=== PATIENT | female | born 1985 | race Caucasian/White ===

== ENCOUNTER → 2019-03-21 | Outpatient (CLI) | payer OTHER ==
--- NOTE | 2019-03-21 14:32 | RADIOLOGY REPORT (SQ) ---
EXAM DESCRIPTION: U/S NON-OB PELVIS TV W/O DOP COMPLETED DATE/TIME: 03/21/2019 2:11 pm REASON FOR STUDY: R10.2 PELVIC AND PERINEAL PAIN R10.9 UNSPECIFIED ABDOMINAL PAIN R10.2 PELVIC AND PERINEAL PAIN COMPARISON: None. TECHNIQUE: Dynamic and static grayscale images acquired of the pelvis via transvaginal approach and recorded on PACS. Additional selected color Doppler and spectral images recorded. LIMITATIONS: None. FINDINGS: UTERUS: Contour normal. No mass. ENDOMETRIAL STRIPE: No focal or generalized thickening. No masses. CERVIX: 2.2 cm. No nabothian cysts. RIGHT OVARY AND DOPPLER: Normal size. No solid masses. There is a 5.6 x 5.2 x 4.2 cm septated cyst w ith internal debris. Normal arterial vascular flow without evidence for torsion. LEFT OVARY AND DOPPLER: Ovary not seen. FREE FLUID: None noted. OTHER: No other significant finding. MEASUREMENTS: UTERUS: 9.4 x 6.9 x 6.3 cm. ENDOMETRIAL STRIPE: 7.5 mm. RIGHT OVARY: 6 x 5.2 x 5.4 cm. LEFT OVARY: Ovary not seen. IMPRESSION: 5.6 cm septated right ovarian cyst with internal debris. The septation is thin. This m ay represent a hemorrhagic cyst. Recommend 6 to 12 week follow-up ultrasound. TECHNICAL DOCUMENTATION: JOB ID: [id number]- All Rights Reserved Rev-11/20 Reading location - IP/workstation name: [email or web address]
--- NOTE | 2019-03-21 14:33 | RADIOLOGY REPORT (SQ) ---
EXAM DESCRIPTION: U/S RETROPERITON (RENAL/AORTA) COMPLETED DATE/TIME: 03/21/2019 2:12 pm REASON FOR STUDY: R10.9 UNSPECIFIED ABDOMINAL PAIN R10.9 UNSPECIFIED ABDOMINAL PAIN R10.2 PELVIC A ND PERINEAL PAIN COMPARISON: None. TECHNIQUE: Dynamic and static grayscale images acquired of the kidneys and bladder and recorded on P ACS. Additional selected color Doppler and spectral images recorded. LIMITATIONS: None. FINDINGS: RIGHT KIDNEY: Normal size, 9.5 cm. Normal echogenicity. No solid or suspicious masses. Th e renal pelvis is prominent, but there is no true hydronephrosis. No calcifications. LEFT KIDNEY: Normal size, 11.8 cm. Normal echogenicity. No solid or suspicious masses. No hydronephr osis. No calcifications. BLADDER: No masses. OTHER FINDINGS: No other significant finding. IMPRESSION: NORMAL RENAL AND BLADDER ULTRASOUND. TECHNICAL DOCUMENTATION: JOB ID: [id number] [employer]- All Rights Reserved Reading location - IP/workstation name: [email or web address]
== END ==
LOC: RAD 13:11
PROVIDERS: ATTEND Nurse Practitioner Family
DX: R10.9 Unspecified abdominal pain (principal); R10.2 Pelvic and perineal pain
CPT/HCPCS: 76770; 76830

== ENCOUNTER 2019-03-22 19:42 | Emergency (ER) | payer OTHER ==
[2019-03-22] MEDS ORDERED: METOCLOPRAMIDE HCL 10 MG TABLET PO ONE (20:01)
--- NOTE | 2019-03-22 20:04 | ER Document Report ---
ED Medical Screen (RME) - General Chief Complaint: Abdominal Pain Stated Complaint: RIGHT SIDE ABDOMINAL PAIN Time Seen by Provider: 03/22/19 19:53 Primary Care Provider: ALMAZ MORALES FNP-C [Primary Care Provider] - Follow up as needed Mode of Arrival: Ambulatory Information source: Patient Notes: 33-year-old female presents emergency department with complaints of right-sided flank/side pain neck pain left shoulder pain. Was recently evaluated for possible ruptured ovarian cyst with TV US and renal US. Denies vaginal discharge denies vaginal bleed. Reports pain started off on the right side this weekend she has been treated with Toradol some hydrocodone and some fluids Rocephin Macrobid. She reports the pain is in her left shoulder and its excruciating. Right lower quad slightly tender to palpate. She Reports that pain is better than it was. I have greeted and performed a rapid initial assessment of this patient. A comprehensive ED assessment and evaluation of the patient, analysis of test results and completion of the medical decision making process will be conducted by additional ED providers. Dictation of this chart was performed using voice recognition software; therefore, there may be some unintended grammatical errors. TRAVEL OUTSIDE OF THE [place] IN LAST 30 DAYS: No - Related Data Allergies/Adverse Reactions: No Known Allergies Allergy (Verified 03/22/19 19:45) Physical Exam - Vital signs Vitals: Temp Pulse Resp BP Pulse Ox 98.6 F 82 18 140/90 H 100 03/22/19 19:49 03/22/19 19:49 03/22/19 19:49 03/22/19 19:49 03/22/19 19:49 Course - Vital Signs Vital signs: Temp Pulse Resp BP Pulse Ox 98.6 F 82 18 140/90 H 100 03/22/19 19:49 03/22/19 19:49 03/22/19 19:49 03/22/19 19:49 03/22/19 19:49 Doctor's Discharge - Discharge Referrals: ALMAZ MORALES FNP-C [Primary Care Provider] - Follow up as needed
[2019-03-22 20:28] LABS: ABSOLUTE EOSINOPHILS # (AUTO) 0.1 10^3/uL (0.0-0.6); ABSOLUTE LYMPHOCYTES (AUTO) 1.8 10^3/uL (0.5-4.7); ABSOLUTE MONOCYTES (AUTO) 0.3 10^3/uL (0.1-1.4); ABSOLUTE NEUT (AUTO) 2.8 10^3/uL (1.7-8.2); BASOPHILS % (AUTO) 0.3 % (0-2); EOSINOPHILS % (AUTO) 1.9 % (0-6); HEMATOCRIT 35.4 % (36.0-47.0); HEMOGLOBIN 11.8 g/dL (12.0-15.5); LYMPHOCYTES % (AUTO) 36.5 % (13-45); MEAN CORPUSCULAR HEMOGLOBIN 30.1 pg (27.0-33.4); MEAN CORPUSCULAR HGB CONC 33.4 g/dL (32.0-36.0); MEAN CORPUSCULAR VOLUME 90 fl (80-97); MONOCYTES % (AUTO) 6.2 % (3-13); PLATELET COUNT 198 10^3/uL (150-450); RED BLOOD COUNT 3.92 10^6/uL (3.72-5.28); RED CELL DISTRIBUTION WIDTH 14.5 % (11.5-14.0); SEGMENTED NEUTROPHILS % (AUTO) 55.1 % (42-78); TOTAL CELLS COUNTED % (AUTO) 100 %
[2019-03-22 20:31] LABS: APPEARANCE,URINE CLEAR; BILIRUBIN,URINE NEGATIVE (NEGATIVE); COLOR,URINE COLORLESS; GLUCOSE, URINE NEGATIVE (NEGATIVE); KETONES,URINE NEGATIVE (NEGATIVE); LEUKOCYTE ESTERASE,URINE NEGATIVE (NEGATIVE); NITRITE,URINE NEGATIVE (NEGATIVE); PROTEIN,URINE NEGATIVE (NEGATIVE); URINE SPECIFIC GRAVITY 1.003; UROBILINOGEN,URINE NEGATIVE mg/dL (<2.0)
[2019-03-22 20:53] LABS: ALBUMIN 4.3 g/dL (3.5-5.0); ALKALINE PHOSPHATASE 40 U/L (38-126); ANION GAP 9 (5-19); ASPARTATE AMINO TRANSFERASE 31 U/L (14-36); BILIRUBIN,TOTAL 0.5 mg/dL (0.2-1.3); BLOOD UREA NITROGEN 13 mg/dL (7-20); CARBON DIOXIDE 23 mmol/L (22-30); CHLORIDE 106 mmol/L (98-107); GLUCOSE 85 mg/dL (75-110); TOTAL PROTEIN 6.8 g/dL (6.3-8.2)
--- NOTE | 2019-03-22 21:18 | ER Document Report ---
ED GI/ - General Chief Complaint: Abdominal Pain Stated Complaint: RIGHT SIDE ABDOMINAL PAIN Time Seen by Provider: 03/22/19 21:18 Primary Care Provider: ALMAZ MORALES FNP-C [Primary Care Provider] - Follow up as needed Mode of Arrival: Ambulatory Information source: Patient Notes: HISTORY OF PRESENT ILLNESS: Patient is a 33-year-old female with no significant past medical history who presents with lower pelvic and right lower quadrant pain beginning 2 days ago. Patient reports that she was seen in outside facility and told she "possibly had an early urine infection" and was given antibiotics. This did not improve so she presented to the emergency department yesterday. At that time she was diagnosed with an ovarian cyst but reports she has not gotten any better. Location: Pelvis, right lower quadrant Onset: 2 or 3 days ago Alleviation: Mild improvement with hydrocodone Provocation: Worsening with movement Quality: Aching, sharp Radiation: None Severity: Severe at worst, currently mild Timing: Persistent History of abdominal surgery: Tubal ligation Associated symptoms: Mild nausea but no vomiting, denies fevers or chills, no vaginal bleeding or discharge Last bowel movement: Today and normal Last menstrual period: Approximately 2 weeks ago REVIEW OF SYSTEMS: CONSTITUTIONAL : Denies fever or chills, no sweats. Denies recent illness. EENT: Denies eye, ear, throat, or mouth pain or symptoms. Denies nasal or sinus congestion. CARDIOVASCULAR: Denies chest pain. Denies swelling of the legs. RESPIRATORY: Denies cough, cold, or chest congestion. Denies shortness of breath or difficulty breathing. Denies wheezing. GASTROINTESTINAL: Positive for abdominal pain. Positive for nausea but no diarrhea. Denies constipation. GENITOURINARY: Denies difficulty urinating, painful urination, burning, frequency, or blood in urine. FEMALE GENITOURINARY: Denies vaginal bleeding, abnormal or irregular periods. MUSCULOSKELETAL: Denies neck or back pain or joint pain or swelling. SKIN: Denies rash or skin lesions. HEMATOLOGIC : Denies easy bruising or bleeding. LYMPHATIC: Denies swollen, enlarged glands. NEUROLOGICAL: Denies altered mental status or loss of consciousness. Denies headache. Denies weakness or paralysis or loss of use of either side. Denies problems with gait or speech. Denies sensory or motor loss. PSYCHIATRIC: Denies anxiety or stress or depression. All other systems reviewed and negative. PHYSICAL EXAMINATION: GENERAL: Well-appearing, well-nourished and in no acute distress. HEAD: Atraumatic, normocephalic. No scalp deformity, depression, or crepitance. EYES: Pupils are 3 mm and equal/round/reactive to light, extraocular movements intact, sclera anicteric, conjunctiva are normal. ENT: Nares patent bilaterally, oropharynx. Moist mucous membranes. No tonsil hypertrophy. NECK: Normal range of motion, supple without lymphadenopathy. LUNGS: Breath sounds present, equal, and clear to auscultation bilaterally. No wheezes, rales, or rhonchi. HEART: Regular rate and rhythm without murmurs, rubs, or gallops. 2+ peripheral pulses. Normal capillary refill. ABDOMEN: Soft and nondistended, mild discomfort in the right lower pelvis. Normoactive bowel sounds. No guarding, no rebound. No masses appreciated. BACK: Normal contour, no midline tenderness. Rectal exam deferred. GENITAL/PELVIC: Deferred. EXTREMITIES: Normal range of motion, no pitting or edema. No cyanosis. NEUROLOGICAL: No focal neurological deficits. Moves all extremities spontaneously and on command. PSYCH: Normal mood, normal affect. No suicidal thoughts/ideations. No homicidal thoughts/ideations. No hallucinations. SKIN: Warm, dry, normal turgor, no rashes or lesions noted. ASSESSMENT AND PLAN: This patient is a 33-year-old female who presents with persistent right lower quadrant and pelvic discomfort. Patient is afebrile and appears nontoxic, consideration was given to appendicitis but this was ruled out apparently according to the patient. 1. Will repeat labs. 2. Will give oral Provera. TRAVEL OUTSIDE OF THE [place] IN LAST 30 DAYS: No - HPI Patient complains to provider of: Abdominal pain Onset: Yesterday Timing/Duration: Sudden Quality of pain: Achy, Cramping Severity at maximum: Moderate Severity in ED: Mild Pain Level: 2 Location: RLQ, Pelvis Vaginal bleeding (Compared to normal period): None Menstrual period history: Irregular Sexual history: Active Associated symptoms: Nausea Exacerbated by: Movement Relieved by: Denies Similar symptoms previously: Yes Recently seen / treated by doctor: Yes - Related Data Allergies/Adverse Reactions: No Known Allergies Allergy (Verified 03/22/19 19:45) Past Medical History - General Information source: Patient - Social History Smoking Status: Never Smoker Chew tobacco use (# tins/day): No Frequency of alcohol use: None Drug Abuse: None Lives with: Family Family History: Reviewed & Not Pertinent Patient has suicidal ideation: No Patient has homicidal ideation: No - Past Medical History Cardiac Medical History: Reports: None Pulmonary Medical History: Reports: None EENT Medical History: Reports: None Neurological Medical History: Reports: None Endocrine Medical History: Reports: None Renal/ Medical History: Reports: None Malignancy Medical History: Reports: None GI Medical History: Reports: None Musculoskeletal Medical History: Reports None Skin Medical History: Reports None Psychiatric Medical History: Reports: None Traumatic Medical History: Reports: None Infectious Medical History: Reports: None Past Surgical History: Reports: Hx Tubal Ligation - Immunizations Immunizations up to date: Yes Hx Diphtheria, Pertussis, Tetanus Vaccination: Yes Review of Systems - Review of Systems Constitutional: No symptoms reported EENT: No symptoms reported Cardiovascular: No symptoms reported Respiratory: No symptoms reported Gastrointestinal: See HPI, Abdominal pain, Nausea Genitourinary: No symptoms reported Female Genitourinary: No symptoms reported Musculoskeletal: No symptoms reported Skin: No symptoms reported Hematologic/Lymphatic: No symptoms reported Neurological/Psychological: No symptoms reported -: Yes All other systems reviewed and negative Physical Exam - Vital signs Vitals: Temp Pulse Resp BP Pulse Ox 98.6 F 82 18 140/90 H 100 03/22/19 19:49 03/22/19 19:49 03/22/19 19:49 03/22/19 19:49 03/22/19 19:49 Interpretation: Normal Course - Re-evaluation Re-evalutation: 03/22/19 22:55 Will discharge the patient home with strict return precautions and follow-up with gynecology. All results were explained to and discussed with the patient, and all questions addressed and answered for the patient. The patient voice both understanding and agreeing with the plan. - Vital Signs Vital signs: Temp Pulse Resp BP Pulse Ox 98.6 F 82 18 140/90 H 100 03/22/19 19:49 03/22/19 19:49 03/22/19 19:49 03/22/19 19:49 03/22/19 19:49 - Laboratory Result Diagrams: 03/22/19 20:20 03/22/19 20:20 Laboratory results interpreted by me: 03/22/19 20:20 Hgb 11.8 L Hct 35.4 L RDW 14.5 H - Diagnostic Test Radiology reviewed: Image reviewed, Reports reviewed Discharge - Discharge Clinical Impression: Ovarian cyst Qualifiers: Laterality: right Qualified Code(s): N83.201 - Unspecified ovarian cyst, right side Condition: Good Disposition: HOME, SELF-CARE Instructions: Ovarian Cyst ([facility]) Additional Instructions: You have been evaluated in the Emergency Department for persistent pain from an ovarian cyst. While here, you had blood work and it is now safe to be discharged home. Please follow-up with your gynecology as instructed in one week to be rechecked. Return to the Emergency Department if you experience worsening pain, high fevers, vaginal bleeding, or any other concerning symptoms. Prescriptions: Acetaminophen with Codeine [Tylenol #3 Tablet] 1 each PO Q6HP PRN #30 tablet PRN Reason: For Pain Medroxyprogesterone Acet [Provera 10 Mg Tablet] 10 mg PO DAILY #30 tablet Metoclopramide HCl [Reglan 10 mg Tablet] 1 tab PO TID #30 tablet Referrals: ALMAZ MORALES FNP-C [Primary Care Provider] - Follow up as needed SIDDHARTHA CONRAD MD [ACTIVE STAFF] - Follow up as needed Print Language: Burkinan
[2019-03-22] MEDS ORDERED: MEDROXYPROGESTERONE ACET 10 MG TABLET PO ONE (21:57)
[2019-03-22 23:05] VITALS: BP 104/60
== END 2019-03-22 23:08 | disposition home or self-care (01) ==
LOC: ER 19:42
DX: N83.201 Unspecified ovarian cyst, right side (principal); R10.2 Pelvic and perineal pain; R10.31 Right lower quadrant pain; R11.0 Nausea; Z98.51 Tubal ligation status
CPT/HCPCS: 36415; 85025; 81025; 80053; 81001; J3490